=== PATIENT | male | born 1945 | race African-American/Black ===

== ENCOUNTER 2017-04-19 16:08 | Inpatient (IN) | payer OTHER ==
[~2017-04-19] VITALS: Ht 175.3 cm; Wt 61.2 kg
[~2017-04-19 16:08] MED LIST: ALEVE PO; IPRA0.2S51 IH; LISI1TAB13 PO
[2017-04-19 17:49] LABS: BG BASE EXCESS 1.1 mmol/L (-2.0-2.0); BG CARBOXYHEMOGLOBIN 0.8 % (0.5-1.5); BG DEOXYHEMOGLOBIN 9.9 % (0.0-5.0); BG FRACTION INSPIRED OXYGEN 24; BG HCO3 ACT 26.1 mmol/L (22.0-26.0); BG METHEMOGLOBIN 0.4 % (0.0-1.5); BG OXYHEMOGLOBIN 88.9 % (94.0-97.0); BG PCO2 42.9 mmHg (35.0-45.0); BG PH 7.402 (7.350-7.450); BG PO2 57.6 mmHg (75.0-100.0); BG SAMPLE SITE RIGHT BRACHIAL; BG VENT MODE NASAL CANNULA
[2017-04-19] MEDS ORDERED: ALBUTEROL (0.083%) 2.5MG/3ML NEB HHN STA (17:55)
[2017-04-19] MEDS ORDERED: PREDNISONE 20MG TABLET PO STA (17:55)
[2017-04-19] MEDS ORDERED: IPRATROPIUM/ALBUTEROL 0.5-3(2.5)MG/3ML NEB HHN ONE ×2 (18:00→22:45)
[2017-04-19 18:34] LABS: BASOPHILS % 0.8 % (0.0-2.0); EOSINOPHILS % 7.8 % (0.0-5.0); HEMATOCRIT. 46.2 % (42.0-52.0); HEMOGLOBIN. 15.8 g/dL (14.0-18.0); LYMPHOCYTES % 18.3 % (20.0-50.0); MEAN CORPUSCULAR HEMOGLOBIN 32.6 pg (28.0-32.0); MEAN CORPUSCULAR VOLUME 95.3 fL (80.0-94.0); MEAN PLATELET VOLUME 8.9 fl (7.4-10.4); MONOCYTES % 9.1 % (2.0-8.0); PLATELET 245 x1000/uL (130-400); RED BLOOD CELL COUNT 4.85 mill/uL (4.7-6.1); RED CELL DISTRIBUTION WIDTH 13.7 % (11.6-14.6)
[2017-04-19 18:41] LABS: CARBON DIOXIDE 34 mEq/L (21-32); CHLORIDE 102 mEq/L (98-107); TROPONIN I < 0.02 ng/mL (0.00-0.04)
[2017-04-19 20:05] LABS: CLARITY URINE CLEAR (CLEAR); COLOR URINE YELLOW (YELLOW); GLUCOSE URINE NEGATIVE (NEGATIVE); KETONES URINE NEGATIVE (NEGATIVE); LEUKOCYTE ESTERASE URINE NEGATIVE (NEGATIVE); NITRITE URINE NEGATIVE (NEGATIVE); OCCULT BLOOD URINE NEGATIVE (NEGATIVE); PH URINE 5.5 (4.5-8.0); PROTEIN URINE NEGATIVE (NEGATIVE); SPECIFIC GRAVITY URINE 1.024 (1.005-1.030); UROBILINOGEN URINE 0.2 E.U./dL (0.2-1.0)
[2017-04-19 20:27] LABS: *AMPHETAMINES SCREEN URINE NEGATIVE (NEGATIVE); *BARBITURATES SCREEN URINE NEGATIVE (NEGATIVE); *BENZODIAZEPINES SCREEN URINE NEGATIVE (NEGATIVE); *COCAINE SCREEN URINE NEGATIVE (NEGATIVE); CANNABINOID URINE SCREEN PRESUMTIVE POSITIVE (NEGATIVE); METHADONE URINE SCREEN NEGATIVE (NEGATIVE); OPIATES URINE SCREEN NEGATIVE (NEGATIVE); PHENCYCLIDINE URINE SCREEN NEGATIVE (NEGATIVE)
[2017-04-19] MEDS ORDERED: LEVOFLOXACIN 500MG PREMIX 100 ML IV ONE (22:45)
[2017-04-19] MEDS ORDERED: MAGNESIUM/ALUMINUM HYDROXIDE/SIMETHICONE 30ML UDC PO PRN (23:30)
[2017-04-19] MEDS ORDERED: DOCUSATE SODIUM 100MG CAPSULE PO PRN (23:30)
[2017-04-19] MEDS ORDERED: CLONIDINE 0.1MG TABLET PO PRN (23:30)
[2017-04-19] MEDS ORDERED: GUAIFENESIN 200MG/10ML SUGAR FREE UDC PO PRN (23:30)
[2017-04-19] MEDS ORDERED: ACETAMINOPHEN 325MG TABLET PO PRN (23:30)
[2017-04-19] MEDS ORDERED: ONDANSETRON HCL 4MG/2ML VIAL IV PRN (23:30)
[2017-04-20] VITALS: BP 127/84
[2017-04-20 00:19] LABS: CHLORIDE 100 mEq/L (98-107)
[2017-04-20 00:25] LABS: CARBON DIOXIDE 28 mEq/L (21-32)
[2017-04-20] MEDS ORDERED: BUDESONIDE 0.5MG/2ML NEB HHN SCH (00:27)
[2017-04-20 00:30] VITALS: BP 127/84
[2017-04-20] MEDS ORDERED: NAPR-679 PO (00:54)
[2017-04-20] MEDS ORDERED: ATOR40TA70 PO (00:56)
[2017-04-20] MEDS ORDERED: ASPI-986 PO (00:56)
[2017-04-20] MEDS ORDERED: DIPH25CA83 PO (00:56)
[2017-04-20] MEDS: AZITHROMYCIN 500 MG TABLET PO SCH ×2 (01:07→08:56)
[2017-04-20] MEDS ORDERED: NAPROXEN 250MG TABLET PO PRN (01:15)
[2017-04-20] MEDS ORDERED: LISI2.5T47 PO (01:18)
[2017-04-20] MEDS ORDERED: CEFTRIAXONE 1 G PREMIX 50 ML IV SCH (02:00)
[2017-04-20 04:00] VITALS: BP 117/78
[2017-04-20] MEDS ORDERED: METHYLPREDNISOLONE SOD SUCC 40 MG/ML VIAL IV SCH (06:00)
[2017-04-20 06:47] LABS: HEMATOCRIT. 43.9 % (42.0-52.0); MEAN CORPUSCULAR HEMOGLOBIN 32.2 pg (28.0-32.0); MEAN CORPUSCULAR VOLUME 94.2 fL (80.0-94.0); PLATELET 263 x1000/uL (130-400); RED BLOOD CELL COUNT 4.66 mill/uL (4.7-6.1); RED CELL DISTRIBUTION WIDTH 13.7 % (11.6-14.6)
[2017-04-20 07:13] LABS: CREATINE KINASE 284 IU/L (39-308); HDL CHOLESTEROL 86 mg/dL (40-59); LDL CHOLESTEROL 52 mg/dL (5-100)
[2017-04-20 07:20] LABS: CREATINE KINASE MB FRACTION 4.7 ng/mL (0.5-3.6); TROPONIN I < 0.02 ng/mL (0.00-0.04)
[2017-04-20] MEDS: IPRATROPIUM/ALBUTEROL 0.5-3(2.5)MG/3ML NEB INH SCH ×2 (07:55→11:47)
[2017-04-20 08:00] VITALS: BP 120/74
[2017-04-20 08:05] LABS: PLATELET ESTIMATE NORMAL
[2017-04-20] MEDS ORDERED: PNEUMOCOCCAL 23-VAL P-SAC VAC 0.5 ML IM ONE (09:00)
[2017-04-20] MEDS ORDERED: ENOXAPARIN 40MG/0.4ML SYR SUBCUT SCH (09:00)
[2017-04-20] MEDS ORDERED: ATORVASTATIN CALCIUM 40MG TABLET PO SCH (09:00)
[2017-04-20] MEDS ORDERED: DIPHENHYDRAMINE 25MG CAPSULE PO PRN (09:00)
[2017-04-20] MEDS ORDERED: ASPIRIN 325MG TABLET PO SCH (09:00)
[2017-04-20] MEDS ORDERED: LISINOPRIL 2.5MG TABLET PO SCH (09:00)
[2017-04-20 11:11] VITALS: BP 126/76
[2017-04-20 12:00] VITALS: BP 111/73
[2017-04-20] MEDS ORDERED: MAGNESIUM 2 G PREMIX 50 ML IV NR (14:00)
[2017-04-21] MEDS ORDERED: LEVOFLOXACIN 750MG PREMIX 150 ML IV SCH
[2017-05-03] MEDS ORDERED: LISI-604 PO (22:44)
[2017-05-04] MEDS ORDERED: LISI-604 PO (03:31)
== END 2017-04-20 12:45 | disposition home or self-care (01) | DRG 177 ==
LOC: ER 16:37 → 8WST 22:37 → EDBEDREQ 22:44 → ENRESERV 22:54
PROVIDERS: ADMIT Internal Medicine; ATTEND Internal Medicine
DX: J69.0 Pneumonitis due to inhalation of food and vomit (principal); J96.21 Acute and chronic respiratory failure with hypoxia; J96.22 Acute and chronic respiratory failure with hypercapnia; J44.1 Chronic obstructive pulmonary disease with (acute) exacerbation; D68.9 Coagulation defect, unspecified; E83.42 Hypomagnesemia; E07.81 Sick-euthyroid syndrome; E86.0 Dehydration; F12.10 Cannabis abuse, uncomplicated; I10 Essential (primary) hypertension; Z90.2 Acquired absence of lung [part of]; Z99.81 Dependence on supplemental oxygen; Z79.899 Other long term (current) drug therapy; Z87.891 Personal history of nicotine dependence
CPT/HCPCS: 36415; 36600; 71010; 80048; 80053; 80061; 80305; 81003; 82375; 82550; 82553; 82805; 83735; 83880; 84443; 84484; 85025; 85379; 87040; 90732; 93005; 93970; 94640; 94664; 96374; 96375; 99284; J0696; J1650; J1956; J2920; J3475; J7040; J7512; J7611; J7620; J7626

== ENCOUNTER 2017-05-21 11:05 | Emergency (ER) | payer OTHER ==
[~2017-05-21] VITALS: Ht 172.7 cm; Wt 60.0 kg
[~2017-05-21 11:05] MED LIST changes: -ALEVE PO; +ASPI-986 PO; +ATOR40TA70 PO; +DIPH25CA83 PO; +LISI-604 PO; -LISI1TAB13 PO
[2017-05-21] MEDS ORDERED: PREDNISONE 20MG TABLET PO STA (11:28)
[2017-05-21] MEDS ORDERED: IPRATROPIUM/ALBUTEROL 0.5-3(2.5)MG/3ML NEB HHN ONE (11:30)
[2017-05-21] MEDS ORDERED: LEVOFLOXACIN 500MG TABLET PO ONE (11:30)
[2017-05-21 15:00] VITALS: BP 139/71
== END 2017-05-21 15:31 | disposition home or self-care (01) ==
LOC: ER 11:07
DX: J44.1 Chronic obstructive pulmonary disease with (acute) exacerbation (principal); J45.901 Unspecified asthma with (acute) exacerbation; I10 Essential (primary) hypertension; Z79.82 Long term (current) use of aspirin; Z87.891 Personal history of nicotine dependence
CPT/HCPCS: 71010; 93005; 94640; 99284; J7512; J7620

== ENCOUNTER 2017-07-07 06:22 | Inpatient (IN) | payer OTHER ==
[2017-07-07] VITALS (7 sets, daily range): BP systolic 91–165; BP diastolic 74–88
[~2017-07-07] VITALS: Ht 170.2 cm; Wt 62.6 kg
[2017-07-07] MEDS ORDERED: IPRATROPIUM BROMIDE (0.02%) 0.5MG/2.5ML NEB HHN STA (06:32)
[2017-07-07] MEDS ORDERED: ALBUTEROL (0.083%) 2.5MG/3ML NEB HHN STA (06:32)
[2017-07-07] MEDS ORDERED: METHYLPREDNISOLONE SOD SUCC 125 MG/2 ML VIAL IV STA (06:32)
[2017-07-07] MEDS ORDERED: MAGNESIUM 2 G PREMIX 50 ML IV ONE (06:45)
[2017-07-07] MEDS ORDERED: LEVOFLOXACIN 500MG PREMIX 100 ML IV ONE (07:00)
[2017-07-07 07:09] LABS: BASOPHILS % 0.7 % (0.0-2.0); EOSINOPHILS % 9.1 % (0.0-5.0); HEMATOCRIT. 44.3 % (42.0-52.0); HEMOGLOBIN. 14.7 g/dL (14.0-18.0); LYMPHOCYTES % 21.2 % (20.0-50.0); MEAN CORPUSCULAR HEMOGLOBIN 31.9 pg (28.0-32.0); MEAN CORPUSCULAR VOLUME 95.9 fL (80.0-94.0); MEAN PLATELET VOLUME 8.8 fl (7.4-10.4); MONOCYTES % 10.3 % (2.0-8.0); NEUTROPHILS % 58.7 % (40.0-76.0); PLATELET 277 x1000/uL (130-400); RED BLOOD CELL COUNT 4.62 mill/uL (4.7-6.1); RED CELL DISTRIBUTION WIDTH 13.8 % (11.6-14.6)
[2017-07-07 07:16] LABS: PROTHROMBIN TIME 10.6 sec (9.4-11.6)
[2017-07-07 07:24] LABS: CARBON DIOXIDE 32 mEq/L (21-32); CHLORIDE 104 mEq/L (98-107)
[2017-07-07 07:25] LABS: TROPONIN I < 0.02 ng/mL (0.00-0.04)
[2017-07-07] MEDS ORDERED: SODIUM CHLORIDE 0.9% 1,000 ML IV ONE (07:25)
[2017-07-07 09:08] LABS: BG BASE EXCESS -2.9 mmol/L (-2.0-2.0); BG BILEVEL POS AIRWAY PRESSURE 15/5; BG CARBOXYHEMOGLOBIN 0.4 % (0.5-1.5); BG DEOXYHEMOGLOBIN 0.9 % (0.0-5.0); BG FRACTION INSPIRED OXYGEN 50; BG METHEMOGLOBIN 0.5 % (0.0-1.5); BG OXYGEN SATURATION 99.1 % (92.0-98.5); BG OXYHEMOGLOBIN 98.2 % (94.0-97.0); BG PCO2 44.4 mmHg (35.0-45.0); BG PH 7.333 (7.350-7.450); BG PO2 184.8 mmHg (75.0-100.0); BG SAMPLE SITE RIGHT BRACHIAL; BG TOTAL HEMOGLOBIN 14.9 g/dL (12.0-18.0); BG VENT MODE MASK - BIPAP
[2017-07-07] MEDS ORDERED: IPRATROPIUM/ALBUTEROL 0.5-3(2.5)MG/3ML NEB HHN PRN (10:15)
[2017-07-07 11:05] LABS: CLARITY URINE CLEAR (CLEAR); COLOR URINE YELLOW (YELLOW); GLUCOSE URINE NEGATIVE (NEGATIVE); KETONES URINE NEGATIVE (NEGATIVE); LEUKOCYTE ESTERASE URINE NEGATIVE (NEGATIVE); NITRITE URINE NEGATIVE (NEGATIVE); OCCULT BLOOD URINE NEGATIVE (NEGATIVE); PROTEIN URINE NEGATIVE (NEGATIVE); SPECIFIC GRAVITY URINE 1.028 (1.005-1.030); UROBILINOGEN URINE 0.2 E.U./dL (0.2-1.0)
[2017-07-07] MEDS ORDERED: ACETAMINOPHEN 325MG TABLET PO PRN (11:15)
[2017-07-07] MEDS ORDERED: ONDANSETRON HCL 4MG/2ML VIAL IV PRN (11:15)
[2017-07-07] MEDS ORDERED: DIPHENHYDRAMINE 50MG/ML VIAL IV PRN (11:15)
[2017-07-07] MEDS ORDERED: HYDROCODONE/ACETAMINOPHEN 5/325MG TABLET PO PRN (11:15)
[2017-07-07] MEDS ORDERED: METHYLPREDNISOLONE SOD SUCC 40 MG/ML VIAL IV SCH (12:00)
[2017-07-07] MEDS: IPRATROPIUM/ALBUTEROL 0.5-3(2.5)MG/3ML NEB HHN SCH ×3 (12:50→20:10)
[2017-07-07] MEDS ORDERED: MIDAZOLAM HCL 2 MG/2 ML VIAL ONE (13:10)
[2017-07-07] MEDS ORDERED: PROPOFOL 200MG/20ML VIAL IV ONE (13:11)
[2017-07-07] MEDS ORDERED: LIDOCAINE HCL 1% 20ML VIAL (Pyxis) INJ ONE (13:11)
[2017-07-07] MEDS ORDERED: FENTANYL CITRATE/PF 50MCG/ML 2ML VIAL ONE ×2 (13:24→13:27)
[2017-07-07] MEDS ORDERED: ONDANSETRON HCL 4MG/2ML VIAL ONE (13:45)
[2017-07-07] MEDS: METHYLPREDNISOLONE SOD SUCC 125 MG/2 ML VIAL IV SCH ×2 (18:24→23:11)
[2017-07-07] MEDS: BUDESONIDE 0.5MG/2ML NEB HHN SCH (20:09)
[2017-07-08] VITALS (15 sets, daily range): BP systolic 118–159; BP diastolic 40–99
[2017-07-08] MEDS: IPRATROPIUM/ALBUTEROL 0.5-3(2.5)MG/3ML NEB HHN SCH ×6 (00:32→20:05)
[2017-07-08] MEDS: METHYLPREDNISOLONE SOD SUCC 125 MG/2 ML VIAL IV SCH ×4 (05:33→23:25)
[2017-07-08 06:47] LABS: HEMATOCRIT. 42.8 % (42.0-52.0); HEMOGLOBIN. 14.5 g/dL (14.0-18.0); MEAN CORPUSCULAR HEMOGLOBIN 32.1 pg (28.0-32.0); MEAN PLATELET VOLUME 9.4 fl (7.4-10.4); PLATELET 268 x1000/uL (130-400); RED BLOOD CELL COUNT 4.51 mill/uL (4.7-6.1); RED CELL DISTRIBUTION WIDTH 13.7 % (11.6-14.6)
[2017-07-08 08:12] LABS: CARBON DIOXIDE 30 mEq/L (21-32); CHLORIDE 100 mEq/L (98-107)
[2017-07-08 08:15] LABS: HDL CHOLESTEROL 99 mg/dL (40-59); LDL CHOLESTEROL 61 mg/dL (5-100)
[2017-07-08] MEDS: BUDESONIDE 0.5MG/2ML NEB HHN SCH ×2 (08:24→20:06)
[2017-07-08] MEDS ORDERED: DOCUSATE SODIUM 250MG CAPSULE PO PRN (11:45)
[2017-07-08 14:01] LABS: PLATELET ESTIMATE NORMAL
[2017-07-09] VITALS (19 sets, daily range): BP systolic 110–165; BP diastolic 69–108
[2017-07-09] MEDS: IPRATROPIUM/ALBUTEROL 0.5-3(2.5)MG/3ML NEB HHN SCH ×6 (00:05→20:18)
[2017-07-09] MEDS: METHYLPREDNISOLONE SOD SUCC 125 MG/2 ML VIAL IV SCH ×4 (05:31→23:43)
[2017-07-09] MEDS: BUDESONIDE 0.5MG/2ML NEB HHN SCH ×2 (08:42→20:18)
[2017-07-09] MEDS ORDERED: MIDAZOLAM HCL 2 MG/2 ML VIAL ONE (14:24)
[2017-07-09] MEDS ORDERED: HEPARIN 1000 UNITS/ML 10ML ONE ×2 (14:52→16:16)
[2017-07-09] MEDS ORDERED: PROTAMINE SULFATE 10MG/ML VIAL 5ML IV ONE (16:16)
[2017-07-09] MEDS ORDERED: CEFAZOLIN SODIUM 1000MG/VIAL ONE (16:16)
[2017-07-09] MEDS: GUAIFENESIN 600MG ER TABLET PO SCH (21:08)
[2017-07-10] VITALS (12 sets, daily range): BP systolic 103–146; BP diastolic 60–90
[2017-07-10] MEDS: IPRATROPIUM/ALBUTEROL 0.5-3(2.5)MG/3ML NEB HHN SCH ×6 (00:24→20:52)
[2017-07-10] MEDS: METHYLPREDNISOLONE SOD SUCC 125 MG/2 ML VIAL IV SCH (05:45)
[2017-07-10] MEDS: BUDESONIDE 0.5MG/2ML NEB HHN SCH ×2 (09:03→20:52)
[2017-07-10] MEDS: GUAIFENESIN 600MG ER TABLET PO SCH ×2 (09:22→20:47)
[2017-07-10 12:30] LABS: BG BASE EXCESS 1.8 mmol/L (-2.0-2.0); BG BILEVEL POS AIRWAY PRESSURE 15/5; BG CARBOXYHEMOGLOBIN 0.2 % (0.5-1.5); BG DEOXYHEMOGLOBIN 1.2 % (0.0-5.0); BG FRACTION INSPIRED OXYGEN 50; BG HCO3 ACT 27.9 mmol/L (22.0-26.0); BG METHEMOGLOBIN 0.3 % (0.0-1.5); BG OXYGEN SATURATION 98.8 % (92.0-98.5); BG OXYHEMOGLOBIN 98.3 % (94.0-97.0); BG PCO2 49.3 mmHg (35.0-45.0); BG PH 7.371 (7.350-7.450); BG PO2 149.8 mmHg (75.0-100.0); BG SAMPLE SITE RIGHT RADIAL; BG TOTAL HEMOGLOBIN 15.2 g/dL (12.0-18.0); BG VENT MODE MASK - BIPAP; BG VENT RATE 14 set
[2017-07-10] MEDS: METHYLPREDNISOLONE SOD SUCC 40 MG/ML VIAL IV SCH ×2 (14:22→22:06)
[2017-07-10] MEDS: ALPRAZOLAM 0.5 MG TABLET PO SCH ×2 (14:22→22:06)
[2017-07-11] VITALS (13 sets, daily range): BP systolic 125–156; BP diastolic 74–88
[2017-07-11] MEDS: IPRATROPIUM/ALBUTEROL 0.5-3(2.5)MG/3ML NEB HHN SCH ×6 (00:16→20:59)
[2017-07-11] MEDS: METHYLPREDNISOLONE SOD SUCC 40 MG/ML VIAL IV SCH (06:11)
[2017-07-11] MEDS: ALPRAZOLAM 0.5 MG TABLET PO SCH ×3 (06:12→21:11)
[2017-07-11] MEDS: BUDESONIDE 0.5MG/2ML NEB HHN SCH ×2 (08:01→21:00)
[2017-07-11] MEDS: GUAIFENESIN 600MG ER TABLET PO SCH ×2 (08:51→21:11)
[2017-07-12] VITALS (9 sets, daily range): BP systolic 115–144; BP diastolic 43–87
[2017-07-12] MEDS: IPRATROPIUM/ALBUTEROL 0.5-3(2.5)MG/3ML NEB HHN SCH ×4 (00:24→12:53)
[2017-07-12] MEDS: ALPRAZOLAM 0.5 MG TABLET PO SCH ×2 (05:29→13:21)
[2017-07-12 06:06] LABS: BASOPHILS % 0.4 % (0.0-2.0); HEMATOCRIT. 42.5 % (42.0-52.0); HEMOGLOBIN. 14.2 g/dL (14.0-18.0); LYMPHOCYTES % 10.9 % (20.0-50.0); MEAN CORPUSCULAR HEMOGLOBIN 31.6 pg (28.0-32.0); MEAN CORPUSCULAR VOLUME 94.5 fL (80.0-94.0); MEAN PLATELET VOLUME 9.5 fl (7.4-10.4); MONOCYTES % 10.4 % (2.0-8.0); NEUTROPHILS % 77.3 % (40.0-76.0); PLATELET 257 x1000/uL (130-400); RED BLOOD CELL COUNT 4.49 mill/uL (4.7-6.1); RED CELL DISTRIBUTION WIDTH 13.9 % (11.6-14.6)
[2017-07-12 06:18] LABS: CARBON DIOXIDE 32 mEq/L (21-32); CHLORIDE 100 mEq/L (98-107)
[2017-07-12] MEDS: GUAIFENESIN 600MG ER TABLET PO SCH (08:22)
[2017-07-12] MEDS ORDERED: PREDNISONE 20MG TABLET PO SCH (09:00)
[2017-07-12] MEDS: BUDESONIDE 0.5MG/2ML NEB HHN SCH (09:24)
== END 2017-07-12 15:05 | disposition home or self-care (01) | DRG 189 ==
LOC: ER 07:45 → 5EST 08:18 → EDBEDREQ 08:19 → EDBEDREQTM 08:19 → ENRESERV 09:27 → 5EST 17:09
PROVIDERS: ADMIT Internal Medicine; ATTEND Internal Medicine
PROC: 5A09357 Assistance with Respiratory Ventilation, Less than 24 Consecutive Hours, Continuous Positive Airway Pressure (ICD-10-PCS; principal; 2017-07-07)
DX: J96.21 Acute and chronic respiratory failure with hypoxia (principal); D68.9 Coagulation defect, unspecified; I27.2 Other secondary pulmonary hypertension; R65.10 Systemic inflammatory response syndrome (SIRS) of non-infectious origin without acute organ dysfunction; J44.1 Chronic obstructive pulmonary disease with (acute) exacerbation; J84.10 Pulmonary fibrosis, unspecified; E78.5 Hyperlipidemia, unspecified; I10 Essential (primary) hypertension; Z66 Do not resuscitate; Z72.0 Tobacco use; Z79.82 Long term (current) use of aspirin; Z79.899 Other long term (current) drug therapy; Z99.81 Dependence on supplemental oxygen
CPT/HCPCS: 36415; 36600; 71010; 80048; 80053; 80061; 81003; 82375; 82805; 83605; 83690; 83880; 84484; 85025; 85610; 87040; 87086; 93005; 93306; 94640; 94660; 96365; 96366; 96368; 96375; 99291; J0690; J1644; J1956; J2250; J2405; J2704; J2720; J2920; J2930; J3010; J3475; J3490; J7030; J7512; J7611; J7620; J7626

== ENCOUNTER 2017-07-23 19:00 | Emergency (ER) | payer OTHER ==
[~2017-07-23] VITALS: Ht 170.2 cm; Wt 60.0 kg
[2017-07-23 19:12] VITALS: BP 127/83
[2017-07-23] MEDS ORDERED: ALBUTEROL (0.083%) 2.5MG/3ML NEB HHN STA (20:19)
[2017-07-23] MEDS ORDERED: SODIUM CHLORIDE 0.9% 1,000 ML IV ONE (20:19)
[2017-07-23] MEDS ORDERED: METHYLPREDNISOLONE SOD SUCC 125 MG/2 ML VIAL IV STA (20:19)
[2017-07-23] MEDS ORDERED: IPRATROPIUM BROMIDE (0.02%) 0.5MG/2.5ML NEB HHN STA (20:19)
[2017-07-23] MEDS ORDERED: MAGNESIUM 2 G PREMIX 50 ML IV ONE (20:30)
== END 2017-07-23 20:40 | disposition left against medical advice (07) ==
LOC: ER 19:18
DX: J44.1 Chronic obstructive pulmonary disease with (acute) exacerbation (principal); E78.5 Hyperlipidemia, unspecified; I10 Essential (primary) hypertension; Z87.891 Personal history of nicotine dependence; Z79.82 Long term (current) use of aspirin
CPT/HCPCS: 99283; J7030

== ENCOUNTER 2017-07-26 02:52 | Inpatient (IN) | payer OTHER ==
[~2017-07-26] VITALS: Ht 172.7 cm; Wt 69.9 kg
[2017-07-26] MEDS ORDERED: METHYLPREDNISOLONE SOD SUCC 125 MG/2 ML VIAL IV STA (02:55)
[2017-07-26] MEDS ORDERED: ALBUTEROL (0.083%) 2.5MG/3ML NEB HHN STA (02:55)
[2017-07-26] MEDS ORDERED: LEVOFLOXACIN 750MG PREMIX 150 ML IV STA (02:55)
[2017-07-26] MEDS ORDERED: IPRATROPIUM BROMIDE (0.02%) 0.5MG/2.5ML NEB HHN STA (02:55)
[2017-07-26] MEDS ORDERED: MAGNESIUM 2 G PREMIX 50 ML IV ONE (03:00)
[2017-07-26] MEDS ORDERED: ASPIRIN 300MG SUPP PR ONE (03:00)
[2017-07-26] MEDS ORDERED: NITROGLYCERIN OINT 1GM/INCH UDPKT TD ONE (03:00)
[2017-07-26] MEDS ORDERED: IPRATROPIUM BROMIDE (0.02%) 0.5MG/2.5ML NEB ONE (03:16)
[2017-07-26 03:35] LABS: BG BASE EXCESS 2.5 mmol/L (-2.0-2.0); BG CARBOXYHEMOGLOBIN 0.5 % (0.5-1.5); BG DEOXYHEMOGLOBIN 0.4 % (0.0-5.0); BG FRACTION INSPIRED OXYGEN 50; BG HCO3 ACT 29.7 mmol/L (22.0-26.0); BG OXYGEN SATURATION 99.6 % (92.0-98.5); BG OXYHEMOGLOBIN 99.1 % (94.0-97.0); BG PCO2 57.4 mmHg (35.0-45.0); BG PH 7.332 (7.350-7.450); BG PO2 305.4 mmHg (75.0-100.0); BG SAMPLE SITE RIGHT BRACHIAL; BG TOTAL HEMOGLOBIN 13.9 g/dL (12.0-18.0); BG VENT MODE MASK - BIPAP; BG VENT RATE 14 set
[2017-07-26 03:48] LABS: BASOPHILS % 0.4 % (0.0-2.0); EOSINOPHILS % 0.9 % (0.0-5.0); HEMATOCRIT. 40.2 % (42.0-52.0); HEMOGLOBIN. 13.5 g/dL (14.0-18.0); MEAN CORPUSCULAR HEMOGLOBIN 31.9 pg (28.0-32.0); MEAN CORPUSCULAR VOLUME 95.2 fL (80.0-94.0); MEAN PLATELET VOLUME 8.1 fl (7.4-10.4); MONOCYTES % 9.5 % (2.0-8.0); NEUTROPHILS % 76.2 % (40.0-76.0); PLATELET 263 x1000/uL (130-400); RED BLOOD CELL COUNT 4.23 mill/uL (4.7-6.1); RED CELL DISTRIBUTION WIDTH 14.1 % (11.6-14.6)
[2017-07-26 03:57] LABS: D-DIMER 0.34 mg/L FEU (<0.50); INR 1.1; PARTIAL THROMBOPLASTIN TIME 24.5 sec (23.4-31.0); PROTHROMBIN TIME 11.2 sec (9.4-11.6)
[2017-07-26 04:02] LABS: CARBON DIOXIDE 33 mEq/L (21-32); CHLORIDE 102 mEq/L (98-107); ETHANOL BLOOD < 10 mg/dL; TROPONIN I < 0.02 ng/mL (0.00-0.04)
[2017-07-26 08:30] VITALS: BP 130/85
[2017-07-26 10:00] VITALS: BP 130/82
[2017-07-26 12:00] VITALS: BP 128/80
[2017-07-26 13:04] VITALS: BP 132/78
[2017-07-26 14:00] VITALS: BP 126/70
[2017-07-26 14:07] VITALS: BP 135/82
== END 2017-07-26 14:50 | disposition home or self-care (01) | DRG 189 ==
LOC: ER 03:05 → ENRESERV 05:12 → 5EST 08:47
PROVIDERS: ADMIT Internal Medicine; ATTEND Internal Medicine
PROC: 5A09357 Assistance with Respiratory Ventilation, Less than 24 Consecutive Hours, Continuous Positive Airway Pressure (ICD-10-PCS; principal; 2017-07-26)
DX: J96.20 Acute and chronic respiratory failure, unspecified whether with hypoxia or hypercapnia (principal); J44.1 Chronic obstructive pulmonary disease with (acute) exacerbation; Z99.81 Dependence on supplemental oxygen; D64.9 Anemia, unspecified; I12.9 Hypertensive chronic kidney disease with stage 1 through stage 4 chronic kidney disease, or unspecified chronic kidney disease; N18.9 Chronic kidney disease, unspecified; Z87.891 Personal history of nicotine dependence; Z79.82 Long term (current) use of aspirin; E78.5 Hyperlipidemia, unspecified; Z79.899 Other long term (current) drug therapy
CPT/HCPCS: 36415; 36600; 71010; 80053; 82375; 82805; 83605; 83880; 84484; 85025; 85379; 85610; 85730; 87040; 93005; 94640; 94660; 96365; 96367; 96375; 99283; 99291; G0482; J1956; J2930; J3475; J7030; J7611

== ENCOUNTER 2017-08-07 05:03 | Inpatient (IN) | payer OTHER ==
[~2017-08-07] VITALS: Ht 175.3 cm; Wt 58.1 kg
[2017-08-07] MEDS ORDERED: IPRATROPIUM BROMIDE (0.02%) 0.5MG/2.5ML NEB HHN STA (05:16)
[2017-08-07] MEDS ORDERED: ONDANSETRON HCL 4MG/2ML VIAL IV STA (05:16)
[2017-08-07] MEDS ORDERED: METHYLPREDNISOLONE SOD SUCC 125 MG/2 ML VIAL IV STA (05:16)
[2017-08-07 05:42] LABS: BASOPHILS % 0.6 % (0.0-2.0); HEMATOCRIT. 42.1 % (42.0-52.0); HEMOGLOBIN. 14.1 g/dL (14.0-18.0); LYMPHOCYTES % 14.3 % (20.0-50.0); MEAN CORPUSCULAR VOLUME 95.7 fL (80.0-94.0); MEAN PLATELET VOLUME 7.9 fl (7.4-10.4); MONOCYTES % 10.2 % (2.0-8.0); NEUTROPHILS % 71.9 % (40.0-76.0); PLATELET 287 x1000/uL (130-400); RED BLOOD CELL COUNT 4.41 mill/uL (4.7-6.1); RED CELL DISTRIBUTION WIDTH 14.2 % (11.6-14.6)
[2017-08-07] MEDS: ALBUTEROL (0.083%) 2.5MG/3ML NEB HHN SCH ×3 (05:45→06:40)
[2017-08-07 05:56] LABS: CARBON DIOXIDE 32 mEq/L (21-32); CHLORIDE 103 mEq/L (98-107); TROPONIN I < 0.02 ng/mL (0.00-0.04)
[2017-08-07 06:08] LABS: BG BASE EXCESS -1.5 mmol/L (-2.0-2.0); BG BILEVEL POS AIRWAY PRESSURE 15/5; BG CARBOXYHEMOGLOBIN 0.6 % (0.5-1.5); BG DEOXYHEMOGLOBIN 1.1 % (0.0-5.0); BG FRACTION INSPIRED OXYGEN 45; BG HCO3 ACT 25.8 mmol/L (22.0-26.0); BG METHEMOGLOBIN 0.2 % (0.0-1.5); BG OXYGEN SATURATION 98.9 % (92.0-98.5); BG OXYHEMOGLOBIN 98.1 % (94.0-97.0); BG PCO2 54.1 mmHg (35.0-45.0); BG PH 7.297 (7.350-7.450); BG PO2 168.6 mmHg (75.0-100.0); BG SAMPLE SITE RIGHT BRACHIAL; BG TOTAL HEMOGLOBIN 14.7 g/dL (12.0-18.0); BG VENT MODE MASK - BIPAP; BG VENT RATE 14 set
[2017-08-07] MEDS: SODIUM CHLORIDE 0.9% 1,000 ML IV SCH ×2 (07:25→07:27)
[2017-08-07 09:07] VITALS: BP 128/95
[2017-08-07 10:00] VITALS: BP 126/69
[2017-08-07] MEDS ORDERED: ENOXAPARIN 40MG/0.4ML SYR SUBCUT SCH (10:00)
[2017-08-07] MEDS ORDERED: IPRATROPIUM/ALBUTEROL 0.5-3(2.5)MG/3ML NEB HHN SCH (10:45)
[2017-08-07 12:00] VITALS: BP 113/67
[2017-08-07] MEDS ORDERED: BUDESONIDE 0.5MG/2ML NEB HHN SCH (12:00)
[2017-08-07 12:36] LABS: BG BASE EXCESS -1.2 mmol/L (-2.0-2.0); BG CARBOXYHEMOGLOBIN 0.5 % (0.5-1.5); BG DEOXYHEMOGLOBIN 5.5 % (0.0-5.0); BG FRACTION INSPIRED OXYGEN 36; BG HCO3 ACT 24.4 mmol/L (22.0-26.0); BG METHEMOGLOBIN 0.3 % (0.0-1.5); BG OXYGEN SATURATION 94.5 % (92.0-98.5); BG OXYHEMOGLOBIN 93.7 % (94.0-97.0); BG PCO2 44.1 mmHg (35.0-45.0); BG PO2 72.4 mmHg (75.0-100.0); BG SAMPLE SITE RIGHT BRACHIAL; BG TOTAL HEMOGLOBIN 13.9 g/dL (12.0-18.0); BG VENT MODE NASAL CANNULA
[2017-08-07 12:50] VITALS: BP 113/67
[2017-08-07] MEDS ORDERED: METHYLPREDNISOLONE SOD SUCC 40 MG/ML VIAL IV SCH (14:00)
[2017-08-08] MEDS ORDERED: PREDNISONE 20MG TABLET PO SCH (09:00)
== END 2017-08-07 18:16 | disposition home or self-care (01) | DRG 189 ==
LOC: ER 05:12 → 5EST 05:54 → EDBEDREQ 05:56 → EDBEDREQTM 05:56 → EDBEDREQSVC 05:56 → ENRESERV 06:56 → 5EST 09:31
PROVIDERS: ADMIT Internal Medicine; ATTEND Internal Medicine
PROC: 5A09357 Assistance with Respiratory Ventilation, Less than 24 Consecutive Hours, Continuous Positive Airway Pressure (ICD-10-PCS; principal; 2017-08-07)
DX: J96.20 Acute and chronic respiratory failure, unspecified whether with hypoxia or hypercapnia (principal); E87.2 Acidosis; J44.1 Chronic obstructive pulmonary disease with (acute) exacerbation; N18.9 Chronic kidney disease, unspecified; I12.9 Hypertensive chronic kidney disease with stage 1 through stage 4 chronic kidney disease, or unspecified chronic kidney disease; Z66 Do not resuscitate; Z99.81 Dependence on supplemental oxygen; Z87.891 Personal history of nicotine dependence; Z90.2 Acquired absence of lung [part of]
CPT/HCPCS: 36415; 36600; 71010; 80053; 82375; 82805; 83605; 83880; 84484; 85025; 87040; 93005; 94640; 94660; 96361; 96374; 96375; 99285; J1650; J2405; J2930; J7030; J7611; J7620